=== PATIENT | male | born 1960 | race Caucasian/White ===

== ENCOUNTER → 2019-02-26 | Outpatient (CLI) | payer BC ==
--- NOTE | 2019-02-26 12:04 | XRAY Report ---
Reason: ABDOMINAL PAIN Procedure Date: 02/26/2019 Accession Number: [id number] / [id number] Procedure: WCP - Abdomen 2 View X-Ray CPT Code: 13548 FULL RESULT: EXAM: ABDOMEN RADIOGRAPHY EXAM DATE: 02/26/2019 11:24 AM. CLINICAL HISTORY: Abdominal pain. COMPARISON: None. TECHNIQUE: 2 views. FINDINGS: Lung Bases: Unremarkable. Bowel Gas Pattern: Within normal limits. No dilated loops or abnormal fluid levels. Free Air: None. Other: Status post cholecystectomy. IMPRESSION: No acute abnormality. RADIA
== END ==
LOC: DI.WCP 08:00 → EDSTATUS 12:27
PROVIDERS: ATTEND Physician Assistant Medical
DX: R10.84 Generalized abdominal pain (principal)
CPT/HCPCS: 74019

== ENCOUNTER 2019-09-09 16:35 | Outpatient (CLI) | payer BC | END 2019-09-09 16:36 | disposition home or self-care (01) | LOC: COV 16:35 | PROVIDERS: ATTEND Family Medicine | DX: R50.9 Fever, unspecified (principal) | CPT/HCPCS: 81599 ==

== ENCOUNTER 2021-04-27 16:38 | Outpatient (CLI) | payer BC ==
--- NOTE | 2021-04-28 08:15 | XRAY Report ---
PROCEDURE: Chest 2 View X-Ray INDICATIONS: CHRONIC COUGH TECHNIQUE: 2 view(s) of the chest. COMPARISON: September 02, 2014 FINDINGS: SUPPORT DEVICES: None. LUNGS/PLEURA: No focal consolidation, pleural effusion or space-occupying pneumothorax. MEDIASTINUM: The cardiomediastinal silhouette is within normal limits. BONES/SOFT TISSUES: No acute abnormality. IMPRESSION: 1.No acute cardiopulmonary abnormality. Reviewed by: Saqib Barahona MD on 04/28/2021 8:13 AM [facility] Approved by: Saqib Barahona MD on 04/28/2021 8:13 AM [facility] Station ID: [id number]
== END 2021-04-27 16:39 | disposition home or self-care (01) ==
LOC: DI.N 16:38
PROVIDERS: ATTEND Physician Assistant Medical
DX: R05.3 Chronic cough (principal)

== ENCOUNTER 2022-03-13 08:50 | Outpatient (CLI) | payer BC | END 2022-03-13 08:51 | disposition critical access hospital (66) | LOC: EMS 08:50 | DX: R55 Syncope and collapse (principal) | CPT/HCPCS: A0425; A0427 ==

== ENCOUNTER 2022-03-13 09:10 | Emergency (ER) | payer BC ==
--- NOTE | 2022-03-13 09:22 | ED Physician Documentation ---
PD HPI SYNCOPE - Stated complaint Stated Complaint: SYNCOPE - History obtained from History obtained from: Patient - History of Present Illness Witnessed: Witnessed Timing - onset: How many minutes ago (30) Duration: Seconds (30) Preceding symptoms: Light headed, Other (local pain right elbow from pressure/palpation from physical therapist at that area.). No: Chest pain, Dyspnea, Abdominal pain Associated symptoms: No: Headache, Chest pain, Palpitations, Dyspnea, Abdominal pain Contributing factors: Noxious stimulae (getting PT to elbow and felt a marked local pain from the pressure of it.). No: Recent med change, Decreased PO intake Similar symptoms before: Diagnosis (has had several episodes of fainting in past related to pain, sight of blood, similar.) Recently seen: Clinic (seen for elbow pain Dx as tendonitis, and referred for PT. Started that today.) Review of Systems Constitutional: denies: Fever, Chills Nose: denies: Rhinorrhea / runny nose, Congestion Throat: denies: Sore throat Cardiac: denies: Chest pain / pressure, Palpitations, Pedal edema, Calf pain Respiratory: denies: Dyspnea, Cough, Wheezing GI: denies: Nausea, Vomiting, Diarrhea, Bloody / black stool Neurologic: reports: Syncope (vasobagal episodes in the past.). denies: Altered mental status, Headache PD PAST MEDICAL HISTORY - Past Medical History Cardiovascular: High cholesterol Respiratory: None Neuro: Fainting Endocrine/Autoimmune: None GI: GERD : None HEENT: None Psych: None Musculoskeletal: None Derm: None - Past Surgical History Past Surgical History: Yes General: Cholecystectomy - Present Medications Home Medications: Ambulatory Orders Medication Instructions Recorded Confirmed Omeprazole [PriLOSEC] 20 mg ORAL BID 12/25/13 03/13/22 Aspirin [[place] Aspirin] 81 mg PO DAILY 03/13/22 03/13/22 Atorvastatin [Lipitor] 20 mg PO DAILY 03/13/22 03/13/22 - Allergies Allergies/Adverse Reactions: Allergies Allergy/AdvReac Type Severity Reaction Status Date / Time morphine Allergy Respiratory Verified 03/13/22 09:24 - Social History Does the pt smoke?: No Smoking Status: Never smoker Does the pt drink ETOH?: Yes Does the pt have substance abuse?: No - Immunizations Immunizations are current?: No Immunizations: TDAP >10years/unknown PD ED PE NORMAL - Vitals Vital signs reviewed: Yes - General General: Alert and oriented X 3, No acute distress, Well developed/nourished - HEENT HEENT: Atraumatic, Pharynx benign - Neck Neck: Supple, no meningeal sign, No adenopathy, No bruit - Cardiac Cardiac: RRR, No murmur - Respiratory Respiratory: Clear bilaterally - Abdomen Abdomen: Soft, Non tender - Derm Derm: Normal color, Warm and dry - Extremities Extremities: No edema, No calf tenderness / cord - Neuro Neuro: Alert and oriented X 3, No motor deficit, No sensory deficit, Normal speech Results - Vitals Vitals: Oxygen O2 Source Room air - EKG (time done) 09:11 Rate: Rate (enter#) (80) Rhythm: NSR Medon: Normal Intervals: Normal IN QRS: Normal Ischemia: Normal ST segments. No: ST elevation c/w ischemia, ST depression - Labs Labs: Laboratory Tests 03/13/22 03/13/22 09:31 09:31 WBC 7.9 RBC 5.04 Hgb 15.0 Hct 46.1 MCV 91.5 MCH 29.8 MCHC 32.5 RDW 13.4 Plt Count 191 MPV 10.1 Neut # (Auto) 5.8 Lymph # (Auto) 1.3 L [place] # (Auto) 0.6 Eos # (Auto) 0.3 Baso # (Auto) 0.1 Absolute Nucleated RBC 0.00 Nucleated RBC % 0.0 Sodium 138 Potassium 4.0 Chloride 105 Carbon Dioxide 27 Anion Gap 6.0 BUN 20 Creatinine 1.2 Estimated GFR (MDRD) 61 L Glucose 112 H Calcium 9.4 Magnesium 1.9 Total Bilirubin 0.8 AST 21 ALT 26 Alkaline Phosphatase 57 Total Protein 7.1 Albumin 4.0 Globulin 3.1 Albumin/Globulin Ratio 1.3 Lipase 38 - Rads (name of study) chest xray Radiology: Prelim report reviewed (no acute process), See rad report PD MEDICAL DECISION MAKING - ED course Complexity details: re-evaluated patient (BP, heart rhythm and his alertness all stay good in er. ), considered differential (sounding like vasovagal fainting. ), d/w patient Departure - Departure Disposition: 01 Home, Self Care Clinical Impression: Syncope Qualifiers: Syncope type: vasovagal syncope Qualified Code(s): R55 - Syncope and collapse Condition: Stable Record reviewed to determine appropriate education?: Yes Instructions: ED Syncope Vasovagal Follow-Up: Sherry Elizalde PA-C [Primary Care Provider] - Comments: The description of the episode and the symptoms and recovery all sound like a vasovagal syncope which is an inappropriate response of the bodies blood pressure and heart rate in response to a stimulus. Rather than going faster heart rate and blood pressure higher ("fight or flight" response), the cardiovascular system instead inappropriately has a slower heart rate and lower blood pressure transiently. This can lead to fainting. This appears to be the case for you this morning. Your EKG is normal without any signs of acute heart injury. Your basic blood counts and blood sugar and electrolytes are good. No signs of heart failure or heart enlargement on x-ray. Continue with your usual medications, activity, diet. Have the physical therapist be perhaps a little less aggressive with the next session. You may consider also having her do the therapy with you in the lying position. Discharge Date/Time: 03/13/22 10:51
--- NOTE | 2022-03-13 09:34 | XRAY Report ---
PROCEDURE: Chest 1 View X-Ray INDICATIONS: Chest Pain TECHNIQUE: One view of the chest was acquired. COMPARISON: Chest x-ray 12-21 FINDINGS: Surgical changes and devices: None. Lungs and pleura: There is a very slight appearance of increased right basilar opacity. Mediastinum: Mediastinal contours appear normal. Heart size is normal. Bones and chest wall: No suspicious bony lesions. Overlying soft tissues appear unremarkable. IMPRESSION: Slight appearance of increased right basilar opacity. This could represent developing pneumonia and/o r atelectasis versus focal asymmetric edema. Reviewed by: Ellie Lr MD on 03/13/2022 9:32 AM PDT Approved by: Ellie Lr MD on 03/13/2022 9:32 AM PDT Station ID: [id number]
[2022-03-13 09:36] LABS: BASOPHILS # (AUTO) 0.1 10^3/uL (0.0-0.1); BASOPHILS % (AUTO) 0.8 %; EOSINOPHILS # (AUTO) 0.3 10^3/uL (0.0-0.7); EOSINOPHILS % (AUTO) 3.3 %; HCT - HEMATOCRIT 46.1 % (42.0-52.0); LYMPHOCYTES # (AUTO) 1.3 10^3/uL (1.5-3.5); LYMPHOCYTES % (AUTO) 15.8 %; MEAN CORPUSCULAR HEMOGLOBIN 29.8 pg (27.0-31.0); MEAN CORPUSCULAR HGB CONC 32.5 g/dL (32.0-36.0); MEAN CORPUSCULAR VOLUME 91.5 fL (80.0-94.0); MEAN PLATELET VOLUME 10.1 fL (7.4-11.4); MONOCYTES # (AUTO) 0.6 10^3/uL (0.0-1.0); MONOCYTES % (AUTO) 7.1 %; NEUTROPHILS # (AUTO) 5.8 10^3/uL (1.5-6.6); NEUTROPHILS % (AUTO) 72.6 %; PLT - PLATELET COUNT 191 10^3/uL (130-450); RED BLOOD COUNT 5.04 10^6/uL (4.70-6.10); RED CELL DISTRIBUTION WIDTH 13.4 % (12.0-15.0); WHITE BLOOD COUNT 7.9 x10^3/uL (4.8-10.8)
[2022-03-13 09:48] LABS: ALBUMIN/GLOBULIN RATIO 1.3 (1.0-2.2); BILIRUBIN,TOTAL 0.8 mg/dL (0.2-1.0); CALCIUM 9.4 mg/dL (8.5-10.3); CREATININE 1.2 mg/dL (0.6-1.2); MAGNESIUM 1.9 mg/dL (1.7-2.8); TOTAL PROTEIN 7.1 g/dL (6.7-8.2)
[2022-03-13 10:42] VITALS: BP 124/77
== END 2022-03-13 10:51 | disposition home or self-care (01) ==
LOC: EDUNIT# → ED 09:10
DX: R55 Syncope and collapse (principal)
CPT/HCPCS: 36415; 80053; 83690; 83735; 85025; 93005; 99284

== ENCOUNTER 2022-11-09 13:05 | Outpatient (CLI) | payer OTHER ==
--- NOTE | 2022-11-09 16:05 | XRAY Report ---
PROCEDURE: Hand 3 View RT INDICATIONS: OSTEOARTHRITIS HAND RIGHT TECHNIQUE: 3 views of the hand(s) acquired. COMPARISON: None. FINDINGS: Bones: No fractures or dislocations. No suspicious bony lesions. First carpometacarpal joint space narrowing with subchondral sclerosis Soft tissues: No suspicious soft tissue calcifications or masses. IMPRESSION: First [facility] osteoarthritis Reviewed by: Ramiro Cruz MD on 11/09/2022 3:04 PM [facility] Approved by: Ramiro Cruz MD on 11/09/2022 3:04 PM [facility] Station ID: [id number]
== END 2022-11-09 13:06 | disposition home or self-care (01) ==
LOC: DI.N 13:05
PROVIDERS: ATTEND Family Medicine
DX: M18.11 Unilateral primary osteoarthritis of first carpometacarpal joint, right hand (principal)

== ENCOUNTER 2023-06-10 07:06 | Outpatient (CLI) | payer OTHER ==
[2023-06-10 12:03] LABS: BASOPHILS # (AUTO) 0.1 10^3/uL (0.0-0.1); BASOPHILS % (AUTO) 0.9 %; EOSINOPHILS # (AUTO) 0.3 10^3/uL (0.0-0.7); EOSINOPHILS % (AUTO) 3.5 %; HCT - HEMATOCRIT 47.2 % (42.0-52.0); HGB - HEMOGLOBIN 15.5 g/dL (14.0-18.0); LYMPHOCYTES # (AUTO) 1.6 10^3/uL (1.5-3.5); MEAN CORPUSCULAR HEMOGLOBIN 29.9 pg (27.0-31.0); MEAN CORPUSCULAR HGB CONC 32.8 g/dL (32.0-36.0); MEAN CORPUSCULAR VOLUME 91.1 fL (80.0-94.0); MEAN PLATELET VOLUME 10.4 fL (7.4-11.4); MONOCYTES # (AUTO) 0.6 10^3/uL (0.0-1.0); MONOCYTES % (AUTO) 7.1 %; NEUTROPHILS # (AUTO) 5.7 10^3/uL (1.5-6.6); PLT - PLATELET COUNT 282 10^3/uL (130-450); RED BLOOD COUNT 5.18 10^6/uL (4.70-6.10); RED CELL DISTRIBUTION WIDTH 13.5 % (12.0-15.0); WHITE BLOOD COUNT 8.2 x10^3/uL (4.8-10.8)
[2023-06-10 12:55] LABS: THYROID STIMULATING HORMONE 0.86 uIU/mL (0.34-5.60)
[2023-06-10 13:13] LABS: ALBUMIN 4.3 g/dL (3.2-5.5); ALBUMIN/GLOBULIN RATIO 1.5 (1.0-2.2); BILIRUBIN,TOTAL 0.7 mg/dL (0.2-1.0); CALCIUM 9.5 mg/dL (8.5-10.3); CREATININE 1.3 mg/dL (0.6-1.3); POTASSIUM 4.1 mmol/L (3.5-4.5); TOTAL PROTEIN 7.1 g/dL (6.4-8.9)
== END 2023-06-10 07:07 | disposition home or self-care (01) ==
LOC: LAB.N 07:06
PROVIDERS: ATTEND Physician Assistant Medical
DX: Z00.00 Encounter for general adult medical examination without abnormal findings (principal); R03.0 Elevated blood-pressure reading, without diagnosis of hypertension; Z79.899 Other long term (current) drug therapy; Z12.5 Encounter for screening for malignant neoplasm of prostate
CPT/HCPCS: 36415; 80053; 84153; 84443; 85025